=== PATIENT | female | born 1955 | race Caucasian/White ===

== ENCOUNTER → 2023-11-13 12:48 | Outpatient (REF) | payer MEDICARE, SELFPAY | LOC: EMG 12:48 | PROVIDERS: ATTENDING PHYSICIAN Podiatrist Foot & Ankle Surgery; FAMILY PHYSICIAN Family Medicine | DX: R20.0 Anesthesia of skin (principal); G60.3 Idiopathic progressive neuropathy | CPT/HCPCS: 95886; 95911 ==

== ENCOUNTER 2025-05-22 06:03 | Day surgery (SDC) | payer MEDICARE, SELFPAY ==
[2025-05-22 14:35] VITALS: BMI 26.6
[2025-05-22 14:36] VITALS: BP 138/87; BMI 26.6
[2025-05-22 15:50] VITALS: BP 155/100
[2025-05-22 16:00] VITALS: BP 150/94
[2025-05-22 16:15] VITALS: BP 161/99
== END 2025-05-22 16:41 | disposition home or self-care (01) ==
LOC: SDS 06:03
PROVIDERS: ATTENDING PHYSICIAN Internal Medicine Gastroenterology
DX: Z12.11 Encounter for screening for malignant neoplasm of colon (principal); D12.3 Benign neoplasm of transverse colon; D12.4 Benign neoplasm of descending colon; K63.5 Polyp of colon; K57.30 Diverticulosis of large intestine without perforation or abscess without bleeding; K64.8 Other hemorrhoids; R19.5 Other fecal abnormalities; B37.81 Candidal esophagitis; K22.89 Other specified disease of esophagus; K44.9 Diaphragmatic hernia without obstruction or gangrene; R12 Heartburn
CPT/HCPCS: 45385; 45380; 43239; 88305; 88312